=== PATIENT | female | born 1965 | race Caucasian/White ===

== ENCOUNTER 2018-10-01 20:17 | Emergency (ER) | payer MEDICAID ==
[~2018-10-01] VITALS: Ht 170.2 cm; Wt 122.9 kg
[~2018-10-01 20:17] MED LIST: ACCUNEB SO1.25 MG/1; FLEXERIL PO; VICODIN 5-5001 EACH PO
[2018-10-01] MEDS ORDERED: ZANAFLEX4 MG PO (21:12)
[2018-10-01] MEDS ORDERED: MEDROLDOSEPACK PO (21:12)
[2018-10-01] MEDS ORDERED: NAPROSYN500 MG PO (21:12)
[2018-10-01 21:52] VITALS: BP 120/72
--- NOTE | 2018-10-02 09:00 | EKG ---
[place] [address] ELECTROCARDIOGRAM REPORT Name: STEFANYJUMAYAMILE D [facility] [id number] Admission: 10/01/18 Attend Phys: Discharge: 10/01/18 Date of : 65 Report #: [id number] THIS REPORT FOR: //name// [facility] ED Test Date: 2018-10-01 Test Time: 21:25:49 Pat Name: YAMILE MCCALL Department: Room: Gender: F Flow Worker: : 1965 Requested By: Rena Alejo Order Number: [id number] MD: Apolinar Pope Measurements Intervals [place] Rate: 85 P: 40 NV: 146 QRS: 64 QRSD: 87 T: -31 QT: 378 QTc: 450 Interpretive Statements Sinus rhythm Borderline repolarization abnormality No previous ECG available for comparison Electronically Signed On 10-02-2018 9:00:05 GROUND INSTRUCTOR BASIC by Apolinar Pope [email or web address] <ELECTRONICALLY SIGNED> By: Apolinar Pope MD, [facility] 10/02/1800 212 24 Apolinar Pope MD, FACC /EPI
== END 2018-10-01 21:37 | disposition home or self-care (01) ==
LOC: M.ERS 20:17
DX: S46.812A Strain of other muscles, fascia and tendons at shoulder and upper arm level, left arm, initial encounter (principal); G89.29 Other chronic pain; J45.909 Unspecified asthma, uncomplicated; W01.0XXA Fall on same level from slipping, tripping and stumbling without subsequent striking against object, initial encounter; Y92.89 Other specified places as the place of occurrence of the external cause; Y93.89 Activity, other specified; Y99.8 Other external cause status

== ENCOUNTER 2021-08-23 19:09 | Inpatient (IN) | payer MEDICAID ==
[~2021-08-23] VITALS: Ht 170.2 cm; Wt 127.0 kg
--- NOTE | ~2021-08-23 | CON ---
[address] [address] CONSULTATION Name: YAMILE MCCALL Room: [address] IN [facility]#: [id number] Admission: 08/23/21 Attend Phys: Ori Stock Discharge: Date of : 65 Report #: [id number] THIS REPORT FOR: cc: Tanisha Hess Stephanie P. DO Arakelov, Alexandr V. MD ~ DATE OF CONSULTATION: 09/02/2021 REQUESTING PHYSICIAN: Dr. Willingham. REASON FOR CONSULTATION: Acute kidney injury. HISTORY OF PRESENT ILLNESS: The patient is a 56-year-old female with medical history significant for obesity, asthma, presents with complaints of shortness of breath. She was diagnosed with COVID on 08/19, started having symptoms on 08/12. She got progressively worse now. She is in intensive care unit, intubated, developed anuric acute kidney injury. PAST MEDICAL HISTORY: As I mentioned earlier. SOCIAL HISTORY: No tobacco or alcohol abuse. REVIEW OF SYSTEMS: Unobtainable. FAMILY HISTORY: Negative for renal problems. PHYSICAL EXAMINATION: GENERAL: She is in intensive care unit, intubated. VITAL SIGNS: Reviewed. NECK: Fatty. LUNGS: Decreased air movements. CARDIOVASCULAR: Irregular rate. ABDOMEN: Obese, soft. LABORATORY DATA: Lab report revealed serum sodium of 150, potassium 5.7, chloride 118, carbon dioxide 20, BUN 116, creatinine 5.6. Creatinine was 1.7 on 08/30. ASSESSMENT: 1. Acute anuric kidney injury due to COVID-19 infection. 2. Respiratory failure. 3. Asthma. 4. Hyperkalemia due to acute kidney injury. PLAN: We will initiate dialysis today. Prognosis is very guarded. [facility] [address] [place] [address] CONSULTATION Name: YAMILE MCCALL Room: [address]#: [id number] Admission: 08/23/21 Attend Phys: Ori Stock Discharge: Date of : 65 Report #: [id number] Thank you very much for consultation. By: [id number] Robertson MD /taz
[~2021-08-23 19:09] MED LIST changes: +MEDROLDOSEPACK PO; +NAPROSYN500 MG PO; +ZANAFLEX4 MG PO
[2021-08-23 19:14] VITALS: BP 125/56
[2021-08-23 20:08] LABS: HEMATOCRIT 32.2 % (37.0-47.0); HEMOGLOBIN 10.5 gm/dL (12.0-15.0); MCH 34.2 pg (26.0-34.0); MCHC 32.6 g/dL (28.0-37.0); MPV 9.9 fl. (7.2-11.1); NUCLEATED RBCS 0 /100WBC; PLATELET COUNT* 220 thou/uL (150-400); RBC 3.07 mil/uL (4.20-5.00); RDW-CV 15.9 % (10.5-14.5); WBC 12.8 thou/uL (4.0-11.0)
[2021-08-23 20:12] LABS: BE -3.1 mmol/L (-2 to +3); PCO2 35.5 mmHg (35.0-45.0); pH 7.391 (7.340-7.450)
[2021-08-23 20:19] LABS: CALCIUM 8.9 mg/dL (8.5-10.1); CREATININE 1.6 mg/dL (0.6-1.3); POTASSIUM 3.7 mmol/L (3.5-5.1)
[2021-08-23 20:30] LABS: ALBUMIN 2.2 g/dL (3.4-5.0); TOTAL BILIRUBIN 0.3 mg/dL (<0.1-1.0); TOTAL PROTEIN 7.9 g/dL (6.4-8.2)
[2021-08-23 21:08] LABS: ABSOLUTE LYMPHOCYTES 0.8 thou/uL (0.8-5.3); ABSOLUTE MONOCYTES 0.6 thou/uL (0.0-1.2); ABSOLUTE NEUTROPHILS 11.4 thou/uL (1.6-8.1); PLATELET ESTIMATE ADEQUATE
[2021-08-23 21:09] LABS: LARGE PLATELETS OCCASIONAL; MACROCYTES Occasional
[2021-08-24] VITALS (16 sets, daily range): BP systolic 102–159; BP diastolic 32–93
[2021-08-24 00:10] LABS: INFLUENZA A ANTIGEN Negative (Negative); INFLUENZA B ANTIGEN Negative (Negative)
[2021-08-24 00:15] LABS: BE -3.7 mmol/L (-2 to +3); PCO2 39.5 mmHg (35.0-45.0); PO2 60.5 mmHg (75.0-100.0); pH 7.354 (7.340-7.450)
--- NOTE | 2021-08-24 09:32 | EKG ---
[place] [address] ELECTROCARDIOGRAM REPORT Name: DOLORES MCCALLMaximo Rehman Room: [place] [address] ADM IN ..#: [id number] Admission: 08/23/21 Attend Phys: Kunal Willingham Discharge: Date of : 65 Date of Service: 08/23/211909 Report #: [id number] THIS REPORT FOR: //name// [facility] ED Test Date: 2021-08-23 Test Time: 19:10:48 Pat Name: YAMILE MCCALL Department: Room: [facility] Gender: F Dinkey Engineer: NATHAN : 1965 Requested By: Humera French Order Number: [id number] MD: Fran Hughes Measurements Intervals [place] Rate: 95 P: 10 AK: 121 QRS: 50 QRSD: 85 T: -45 QT: 309 QTc: 389 Interpretive Statements Sinus rhythm Abnormal R-wave progression, early transition Borderline repolarization abnormality Compared to ECG 10/01/2018 21:25:49 No significant changes Electronically Signed On 08-24-2021 9:31:40 VP PLATFORMS by Fran Hughes [email or web address] <ELECTRONICALLY SIGNED> By: Selena Hughes MD, FACC 08/24/21930 09 09 Selena Hughes MD, FAC /EPI
[2021-08-25] VITALS (106 sets, daily range): BP systolic 79–207; BP diastolic 42–137
[2021-08-25 07:19] LABS: ABSOLUTE LYMPHOCYTES 0.3 thou/uL (0.8-5.3); ABSOLUTE MONOCYTES 0.2 thou/uL (0.0-1.2); ABSOLUTE NEUTROPHILS 5.5 thou/uL (1.6-8.1); BASOPHILS 0.1 %; HEMATOCRIT 31.5 % (37.0-47.0); HEMOGLOBIN 10.2 gm/dL (12.0-15.0); MCH 34.3 pg (26.0-34.0); MCHC 32.5 g/dL (28.0-37.0); MCV 105.5 fL (80.0-100.0); MONOCYTES 2.6 %; NUCLEATED RBCS 0 /100WBC; PLATELET COUNT* 162 thou/uL (150-400); POLYS 92.3 %; RBC 2.98 mil/uL (4.20-5.00); RDW-CV 16.1 % (10.5-14.5); WBC 5.9 thou/uL (4.0-11.0)
[2021-08-25 07:30] LABS: CALCIUM 8.4 mg/dL (8.5-10.1); CREATININE 1.4 mg/dL (0.6-1.3); MAGNESIUM 1.9 mg/dL (1.8-2.4); PHOSPHORUS* 3.2 mg/dL (2.5-4.9)
[2021-08-25 08:40] LABS: BE -3.7 mmol/L (-2 to +3); PCO2 37.6 mmHg (35.0-45.0); PO2 76.1 mmHg (75.0-100.0); pH 7.368 (7.340-7.450)
[2021-08-25 14:18] LABS: ABSOLUTE LYMPHOCYTES 0.3 thou/uL (0.8-5.3); ABSOLUTE MONOCYTES 0.3 thou/uL (0.0-1.2); ABSOLUTE NEUTROPHILS 8.7 thou/uL (1.6-8.1); BASOPHILS 0.4 %; HEMATOCRIT 34.1 % (37.0-47.0); LYMPHOCYTES 2.9 %; MCH 34.5 pg (26.0-34.0); MCHC 32.1 g/dL (28.0-37.0); MCV 107.5 fL (80.0-100.0); MONOCYTES 3.5 %; MPV 10.7 fl. (7.2-11.1); NUCLEATED RBCS 0 /100WBC; PLATELET COUNT* 221 thou/uL (150-400); POLYS 93.2 %; RBC 3.18 mil/uL (4.20-5.00); WBC 9.4 thou/uL (4.0-11.0)
[2021-08-25 14:40] LABS: APTT 22.2 Seconds (25.0-31.3); INR 1.1
[2021-08-25 16:39] LABS: BE -5.8 mmol/L (-2 to +3); PCO2 37.6 mmHg (35.0-45.0); PO2 78.9 mmHg (75.0-100.0); pH 7.333 (7.340-7.450)
[2021-08-25 20:39] LABS: CALCIUM 8.4 mg/dL (8.5-10.1); CREATININE 1.8 mg/dL (0.6-1.3)
[2021-08-25 20:44] LABS: ALBUMIN 1.9 g/dL (3.4-5.0); PHOSPHORUS* 4.4 mg/dL (2.5-4.9); TOTAL BILIRUBIN 0.3 mg/dL (<0.1-1.0); TOTAL PROTEIN 7.2 g/dL (6.4-8.2)
[2021-08-26] VITALS (88 sets, daily range): BP systolic 99–149; BP diastolic 51–96
[2021-08-26 04:39] LABS: HEMATOCRIT 30.4 % (37.0-47.0); HEMOGLOBIN 9.8 gm/dL (12.0-15.0); MCH 34.1 pg (26.0-34.0); MCHC 32.1 g/dL (28.0-37.0); MCV 106.2 fL (80.0-100.0); MPV 9.7 fl. (7.2-11.1); NUCLEATED RBCS 0 /100WBC; RBC 2.86 mil/uL (4.20-5.00); RDW-CV 15.8 % (10.5-14.5); WBC 5.4 thou/uL (4.0-11.0)
[2021-08-26 05:20] LABS: ALBUMIN 1.7 g/dL (3.4-5.0); CALCIUM 8.2 mg/dL (8.5-10.1); CREATININE 1.9 mg/dL (0.6-1.3); POTASSIUM 4.2 mmol/L (3.5-5.1); TOTAL BILIRUBIN 0.2 mg/dL (<0.1-1.0); TOTAL PROTEIN 6.8 g/dL (6.4-8.2)
[2021-08-26 05:22] LABS: PLATELET COUNT* 124 thou/uL (150-400)
[2021-08-26 06:06] LABS: pH 7.182 (7.340-7.450)
[2021-08-26 06:07] LABS: PCO2 57.2 mmHg (35.0-45.0); PO2 153.6 mmHg (75.0-100.0)
[2021-08-26 08:43] LABS: INR 1.2; PROTIME 12.1 Seconds (9.20-11.50)
[2021-08-26 08:46] LABS: APTT > 139.0 Seconds (25.0-31.3)
[2021-08-26 08:48] LABS: ABSOLUTE LYMPHOCYTES 0.3 thou/uL (0.8-5.3); ABSOLUTE MONOCYTES 0.1 thou/uL (0.0-1.2); ABSOLUTE NEUTROPHILS 5.1 thou/uL (1.6-8.1)
[2021-08-26 08:49] LABS: PLATELET ESTIMATE DECREASED
[2021-08-26 08:50] LABS: HYPOCHROMASIA Occasional; MACROCYTES 1+
--- NOTE | 2021-08-26 14:12 | 2DMMODE ---
[place] [address] 2 D/M-MODE ECHOCARDIOGRAM Name: YAMILE MCCALL [facility] [place].#: [id number] Admission: 08/23/21 Attend Phys: Kunal Willingham Discharge: Date of : 65 Date of Service: 08/26/21 1411 Report #: [id number] THIS REPORT FOR: cc: Tanisha Hess,Apolinar Bo MD [facility] ~ APPROVED REPORT Study performed: 08/26/2021 10:52:40 EXAM: Comprehensive 2D, Doppler, and color-flow Echocardiogram Patient Location: In-Patient Room #: 002 Status: routine BSA: 2.30 HR: 68 bpm BP: 131/81 mmHg Rhythm: NSR Other Information Study Quality: Good Indications Dyspnea 2D Dimensions IVSd: 11.17 (7-11mm) LVOT Diam: 21.27 (18-24mm) LVDd: 40.45 mm PWd: 10.51 (7-11mm) Ascending Ao: 36.65 (22-36mm) LVDs: 25.88 (25-40mm) Aortic Root: 34.47 mm Volumes Left Atrial Volume (Systole) LA ESV Index: 15.00 mL/m2 Aortic Valve AoV Peak Aldair.: 1.50 m/s AO Peak Gr.: 9.04 mmHg LVOT Max P.42 mmHg AO Mean Gr.: 5.00 mmHg LVOT Mean P.23 mmHg LVOT Max V: 1.16 m/s AO V2 VTI: 25.21 cm LVOT Mean V: 0.67 m/s CHRISTY (VTI): 2.80 cm2 LVOT V1 VTI: 19.88 [place] [address] 2 D/M-MODE ECHOCARDIOGRAM Name: YAMILE MCCALL Room: [address] IN [facility].#: [id number] Admission: 08/23/21 Attend Phys: Kunal Willingham Discharge: Date of : 65 Date of Service: 08/26/21 1411 Report #: [id number] Mitral Valve E/A Ratio: 0.85 MV Decel. Time: 234.13 ms MV E Max Aldair.: 0.78 m/s MV PHT: 67.90 ms MVA (PHT): 3.24 cm2 TDI E/Lateral E': 6.50 E/Medial E': 7.80 Medial E' Aldair.: 0.10 m/s Lateral E' Aldair.: 0.12 m/s Pulmonary Valve PV Peak Aldair.: 0.81 m/s PV Peak Gr.: 2.60 mmHg Left Ventricle The left ventricle is normal size. There is normal LV segmental wall motion. There is normal left ventricular wall thickness. Left ventricular systolic function is normal. The left ventricular ejection fraction is within the normal range. LVEF is 55-60%. Grade I - abnormal relaxation pattern. Right Ventricle The right ventricle is normal size. The right ventricular systolic function is normal. Atria The left atrium size is normal. The right atrium size is normal. Aortic Valve The aortic valve is normal in structure. No aortic regurgitation is present. There is no aortic valvular stenosis. Mitral Valve The mitral valve is normal in structure. There is no mitral valve regurgitation noted. No evidence of mitral valve stenosis. Tricuspid Valve The tricuspid valve is normal in structure. Unable to assess PA pressure. Trace tricuspid regurgitation. Pulmonic Valve Pulmonic valve is not well visualized. There is no pulmonic [place] [address] 2 D/M-MODE ECHOCARDIOGRAM Name: YAMILE MCCALL Room: [address] IN [facility]#: [id number] Admission: 08/23/21 Attend Phys: Kunal Willingham Discharge: Date of : 65 Date of Service: 08/26/21 1411 Report #: [id number] Great Vessels The aortic root is normal in size. IVC is normal in size and collapses >50% with inspiration. Pericardium There is no pericardial effusion. <Conclusion> Left ventricular systolic function is normal. The left ventricular ejection fraction is within the normal range. <ELECTRONICALLY SIGNED> By: Apolinar Pope MD, FACC 08/26/211410 10 10 Apolinar Pope MD, FACC /INF
[2021-08-27] VITALS (80 sets, daily range): BP systolic 105–150; BP diastolic 51–81
[2021-08-27 06:28] LABS: HEMATOCRIT 36.8 % (37.0-47.0); HEMOGLOBIN 11.5 gm/dL (12.0-15.0); MCH 33.5 pg (26.0-34.0); MCHC 31.2 g/dL (28.0-37.0); MCV 107.1 fL (80.0-100.0); MPV 9.1 fl. (7.2-11.1); RBC 3.43 mil/uL (4.20-5.00); RDW-CV 16.1 % (10.5-14.5)
[2021-08-27 07:10] LABS: CREATININE 1.5 mg/dL (0.6-1.3); POTASSIUM 3.7 mmol/L (3.5-5.1)
[2021-08-27 12:25] LABS: BE -5.2 mmol/L (-2 to +3); pH 7.325 (7.340-7.450)
[2021-08-27 12:29] LABS: PO2 203.3 mmHg (75.0-100.0)
[2021-08-28] VITALS (32 sets, daily range): BP systolic 124–160; BP diastolic 66–86
[2021-08-28 06:11] LABS: HEMATOCRIT 27.3 % (37.0-47.0); MCH 34.9 pg (26.0-34.0); MCHC 32.6 g/dL (28.0-37.0); MCV 107.1 fL (80.0-100.0); MPV 10.2 fl. (7.2-11.1); RBC 2.55 mil/uL (4.20-5.00); RDW-CV 16.4 % (10.5-14.5); WBC 6.8 thou/uL (4.0-11.0)
[2021-08-28 06:24] LABS: HEMOGLOBIN 8.9 gm/dL (12.0-15.0)
[2021-08-29] VITALS (28 sets, daily range): BP systolic 93–154; BP diastolic 59–91
[2021-08-29 04:27] LABS: BE -7.5 mmol/L (-2 to +3); PCO2 44.5 mmHg (35.0-45.0)
[2021-08-29 04:29] LABS: PO2 125.8 mmHg (75.0-100.0); pH 7.257 (7.340-7.450)
[2021-08-29 05:55] LABS: ABSOLUTE LYMPHOCYTES 0.4 thou/uL (0.8-5.3); ABSOLUTE MONOCYTES 0.2 thou/uL (0.0-1.2); ABSOLUTE NEUTROPHILS 7.6 thou/uL (1.6-8.1); HEMATOCRIT 28.9 % (37.0-47.0); HEMOGLOBIN 9.3 gm/dL (12.0-15.0); LYMPHOCYTES 5.2 %; MCH 34.2 pg (26.0-34.0); MCHC 32.1 g/dL (28.0-37.0); MCV 106.6 fL (80.0-100.0); MONOCYTES 2.9 %; MPV 11.1 fl. (7.2-11.1); NUCLEATED RBCS 0 /100WBC; PLATELET COUNT* 144 thou/uL (150-400); POLYS 91.9 %; RBC 2.71 mil/uL (4.20-5.00); RDW-CV 16.4 % (10.5-14.5); WBC 8.2 thou/uL (4.0-11.0)
[2021-08-29 06:44] LABS: ALBUMIN 1.7 g/dL (3.4-5.0); CALCIUM 8.2 mg/dL (8.5-10.1); CREATININE 1.4 mg/dL (0.6-1.3); POTASSIUM 4.2 mmol/L (3.5-5.1); TOTAL BILIRUBIN 0.3 mg/dL (<0.1-1.0); TOTAL PROTEIN 6.1 g/dL (6.4-8.2)
[2021-08-29 07:55] LABS: INR 1.2; PROTIME 11.8 Seconds (9.20-11.50)
[2021-08-29 16:26] LABS: BE -5.1 mmol/L (-2 to +3); PCO2 41.9 mmHg (35.0-45.0); pH 7.315 (7.340-7.450)
[2021-08-29 16:29] LABS: PO2 130.5 mmHg (75.0-100.0)
[2021-08-30] VITALS (41 sets, daily range): BP systolic 116–197; BP diastolic 72–108
[2021-08-30 05:10] LABS: HEMATOCRIT 21.7 % (37.0-47.0); MCH 34.4 pg (26.0-34.0); MCHC 33.1 g/dL (28.0-37.0); MPV 10.9 fl. (7.2-11.1); RBC 2.08 mil/uL (4.20-5.00); RDW-CV 16.1 % (10.5-14.5); WBC 11.4 thou/uL (4.0-11.0)
[2021-08-30 05:14] LABS: HEMOGLOBIN 7.2 gm/dL (12.0-15.0)
[2021-08-30 05:25] LABS: CALCIUM 8.2 mg/dL (8.5-10.1); CREATININE 1.7 mg/dL (0.6-1.3); POTASSIUM 4.1 mmol/L (3.5-5.1)
[2021-08-30 20:55] LABS: HEMATOCRIT 28.6 % (37.0-47.0); MCH 34.3 pg (26.0-34.0); MCHC 32.2 g/dL (28.0-37.0); MCV 106.5 fL (80.0-100.0); MPV 11.1 fl. (7.2-11.1); NUCLEATED RBCS 0 /100WBC; PLATELET COUNT* 122 thou/uL (150-400); RBC 2.68 mil/uL (4.20-5.00); RDW-CV 16.3 % (10.5-14.5); WBC 12.5 thou/uL (4.0-11.0)
[2021-08-30 20:58] LABS: HEMOGLOBIN 9.2 gm/dL (12.0-15.0)
[2021-08-30 21:58] LABS: ABSOLUTE LYMPHOCYTES 0.4 thou/uL (0.8-5.3); ABSOLUTE MONOCYTES 0.1 thou/uL (0.0-1.2); PLATELET ESTIMATE DECREASED
[2021-08-30 21:59] LABS: MACROCYTES Occasional
[2021-08-31] VITALS (82 sets, daily range): BP systolic 94–176; BP diastolic 57–97
[2021-08-31 05:49] LABS: BE -3.1 mmol/L (-2 to +3); PCO2 38.7 mmHg (35.0-45.0); pH 7.367 (7.340-7.450)
[2021-08-31 07:59] LABS: ABSOLUTE LYMPHOCYTES 0.3 thou/uL (0.8-5.3); ABSOLUTE MONOCYTES 0.1 thou/uL (0.0-1.2); ABSOLUTE NEUTROPHILS 12.2 thou/uL (1.6-8.1); BASOPHILS 0.1 %; HEMATOCRIT 30.3 % (37.0-47.0); HEMOGLOBIN 9.4 gm/dL (12.0-15.0); MCH 33.3 pg (26.0-34.0); MCHC 30.9 g/dL (28.0-37.0); MCV 107.8 fL (80.0-100.0); MONOCYTES 0.7 %; MPV 12.2 fl. (7.2-11.1); NUCLEATED RBCS 0 /100WBC; PLATELET COUNT* 129 thou/uL (150-400); POLYS 97.2 %; RBC 2.81 mil/uL (4.20-5.00); RDW-CV 16.5 % (10.5-14.5); WBC 12.5 thou/uL (4.0-11.0)
[2021-08-31 08:16] LABS: ALBUMIN 1.6 g/dL (3.4-5.0); CALCIUM 8.1 mg/dL (8.5-10.1); CREATININE 1.7 mg/dL (0.6-1.3); POTASSIUM 4.3 mmol/L (3.5-5.1); TOTAL BILIRUBIN 0.4 mg/dL (<0.1-1.0); TOTAL PROTEIN 6.3 g/dL (6.4-8.2)
[2021-09-01] VITALS (63 sets, daily range): BP systolic 77–163; BP diastolic 42–89
[2021-09-01 04:39] LABS: HEMATOCRIT 28.4 % (37.0-47.0); MCH 33.8 pg (26.0-34.0); MCHC 31.9 g/dL (28.0-37.0); MCV 106.1 fL (80.0-100.0); MPV 11.9 fl. (7.2-11.1); RBC 2.67 mil/uL (4.20-5.00); RDW-CV 16.2 % (10.5-14.5); WBC 11.1 thou/uL (4.0-11.0)
[2021-09-01 04:51] LABS: CALCIUM 7.4 mg/dL (8.5-10.1); POTASSIUM 4.6 mmol/L (3.5-5.1)
[2021-09-01 04:52] LABS: CREATININE 2.9 mg/dL (0.6-1.3)
[2021-09-01 10:11] LABS: CALCIUM 6.9 mg/dL (8.5-10.1); CREATININE 2.9 mg/dL (0.6-1.3); POTASSIUM 4.5 mmol/L (3.5-5.1)
[2021-09-02] VITALS (81 sets, daily range): BP systolic 56–195; BP diastolic 31–72
[2021-09-02 04:28] LABS: HEMATOCRIT 29.9 % (37.0-47.0); HEMOGLOBIN 9.6 gm/dL (12.0-15.0); MCH 34.1 pg (26.0-34.0); MCHC 32.1 g/dL (28.0-37.0); MCV 106.2 fL (80.0-100.0); MPV 12.1 fl. (7.2-11.1); RBC 2.82 mil/uL (4.20-5.00); RDW-CV 17.2 % (10.5-14.5); WBC 14.8 thou/uL (4.0-11.0)
[2021-09-02 05:24] LABS: ALBUMIN 1.6 g/dL (3.4-5.0); CALCIUM 6.6 mg/dL (8.5-10.1); MAGNESIUM 3.1 mg/dL (1.8-2.4); TOTAL BILIRUBIN 0.9 mg/dL (<0.1-1.0); TOTAL PROTEIN 5.7 g/dL (6.4-8.2)
[2021-09-02 05:45] LABS: POTASSIUM 5.6 mmol/L (3.5-5.1)
[2021-09-02 05:46] LABS: CREATININE 5.6 mg/dL (0.6-1.3)
[2021-09-02 06:29] LABS: APTT 77.9 Seconds (25.0-31.3); INR 1.2; PROTIME 11.9 Seconds (9.20-11.50)
[2021-09-02 06:47] LABS: CK-MB MASS 1.8 ng/mL (<0.5-3.6)
[2021-09-02 07:42] LABS: CALCIUM 6.4 mg/dL (8.5-10.1); CREATININE 5.9 mg/dL (0.6-1.3); POTASSIUM 5.7 mmol/L (3.5-5.1)
--- NOTE | 2021-09-02 10:09 | CON ---
[facility] [address] [place] [address] CONSULTATION Name: STEFANYYAMILE Ori Room: [address] IN [place].Shayy.#: [id number] Admission: 08/23/21 Attend Phys: Ori Stock Discharge: Date of : 65 Report #: [id number] THIS REPORT FOR: cc: Tanisha Hess Stephanie P. DO Blick, David R. MD [facility] ~ DATE OF CONSULTATION: 09/01/2021 CARDIOLOGY CONSULTATION CHIEF COMPLAINT: Weakness, vomiting, diarrhea on admission. HISTORY OF PRESENT ILLNESS: The patient is a 56-year-old white female who I was asked to see in the ICU today after she was noted to be in atrial fibrillation. The history is obtained from the chart. There are no family members available. The patient is currently intubated and sedated. She was brought to the Emergency Room by private vehicle a week ago. She complained of chest pain because of respiratory failure. The patient had to be intubated. She tested positive for COVID-19. She has been on ventilator since that time. She was on IV pressors for hypertension. Last night, she went into atrial fibrillation with rapid ventricular response rate. Cardiology consultation requested. PAST MEDICAL HISTORY: Significant for asthma. She was recently diagnosed with COVID-19. MEDICATIONS: Consist of home medications of albuterol, hydrocodone, Naprosyn. ALLERGIES: SHE HAS PREVIOUS INTOLERANCE TO PENICILLIN. FAMILY HISTORY: Cannot be obtained. SOCIAL HISTORY: Unavailable. REVIEW OF SYSTEMS: Cannot be obtained. PHYSICAL EXAMINATION: GENERAL: Revealed a middle-aged, overweight female, lying in bed, on ventilator. VITAL SIGNS: She has blood pressure of 100/60, pulse is 90. She is afebrile. HEENT: She was anicteric. Conjunctivae pink. Mucosa moist. NECK: Veins not appear distended. CHEST: Revealed coarse breath sounds bilaterally. CARDIAC: Regular rate and rhythm. ABDOMEN: Obese. EXTREMITIES: [place] [address] CONSULTATION Name: YAMILE MCCALL Room: [address]#: [id number] Admission: 08/23/21 Attend Phys: Ori Stock Discharge: Date of : 65 Report #: [id number] SKIN: Cool and dry. NEUROLOGIC: Nonfocal. LABORATORY DATA: Her ECG on admission a week ago showed a sinus rhythm, early transition, nonspecific T-wave changes. ECG this morning shows atrial fibrillation with a rapid ventricular response rate, nonspecific ST segment changes. The patient actually had an echocardiogram performed a week ago that showed normal ejection fraction, no significant valvular abnormalities. The patient had a portable chest x-ray this morning that showed extensive emphysematous changes with bilateral interstitial infiltrates, pulmonary edema. There was subcutaneous emphysema, no pneumothorax. LABORATORY WORK: BUN 81, creatinine 2.9, glucose 273. Her troponin high sensitivity was only 14. BNP 2773. Hemoglobin 9.0, [place] [address]. IMPRESSION AND RECOMMENDATIONS: 1. Atrial fibrillation. I would give digoxin to slow the ventricular response rate. I would consider anticoagulation. 2. Obesity. 3. COVID-19 pneumonia. 4. Anemia. No history of bleeding. 5. Acute kidney injury. <ELECTRONICALLY SIGNED> By: Apolinar Pope MD, FACC 09/02/21 1009 0923 1009Apolinar Pope MD, FACC /nt
[2021-09-02 10:31] LABS: BE -15.2 mmol/L (-2 to +3); PCO2 49.6 mmHg (35.0-45.0)
[2021-09-02 10:36] LABS: PO2 158.2 mmHg (75.0-100.0); pH 7.079 (7.340-7.450)
[2021-09-02 12:24] LABS: CALCIUM 6.3 mg/dL (8.5-10.1); CREATININE 5.8 mg/dL (0.6-1.3); POTASSIUM 5.9 mmol/L (3.5-5.1)
--- NOTE | 2021-09-02 12:25 | EKG ---
[facility] [address] [place] [address] ELECTROCARDIOGRAM REPORT Name: YAMILE MCCALL Room: [address] ADM IN M.R.#: [id number] Admission: 08/23/21 Attend Phys: Kunal Willingham Discharge: Date of : 65 Date of Service: 09/01/21 0655 Report #: [id number] THIS REPORT FOR: //name// [facility] Test Date: 2021-09-01 Test Time: 06:55:50 Pat Name: YAMILE MCCALL Department: Room: [address] Gender: F Record Pressman: : 1965 Requested By: Memo Castellon Order Number: [id number] Reading MD: Cooper Baron Measurements Intervals [employer] Rate: 87 P: 34 NC: 96 QRS: 52 QRSD: 87 T: 22 QT: 328 QTc: 395 Interpretive Statements Sinus rhythm Short NC interval Abnormal R-wave progression, early transition Repol abnrm suggests ischemia, anterior leads Baseline wander in lead(s) V4 Compared to ECG 08/23/2021 19:10:48 Short NC interval now present Possible ischemia now present Electronically Signed On 09-02-2021 12:25:14 HUMAN RESOURCES MGR by Cooper Baron [email or web address] <ELECTRONICALLY SIGNED> By: Cooper Baron MD, [facility] 09/02/21 1225 0655 Cooper Baron MD, [facility] /EPI
--- NOTE | 2021-09-02 12:26 | EKG ---
[place] [address] ELECTROCARDIOGRAM REPORT Name: YAMILE MCCALL Room: [address] ADM IN M.R.#: [id number] Admission: 08/23/21 Attend Phys: Kunal Willingham Discharge: Date of : 65 Date of Service: 09/01/21 0951 Report #: [id number] THIS REPORT FOR: //name// [facility] Test Date: 2021-09-01 Test Time: 09:51:59 Pat Name: YAMILE MCCALL Department: Room: [address] Gender: F Wild Life Photographer: : 1965 Requested By: Memo Castellon Order Number: [id number] Reading MD: Cooper Baron Measurements Intervals [place] Rate: 147 P: DE: QRS: 63 QRSD: 75 T: 225 QT: 227 QTc: 355 Interpretive Statements Atrial fibrillation Nonspecific repol abnormality, diffuse leads Compared to ECG 08/23/2021 19:10:48 Sinus rhythm no longer present ST-T alterations are slightly more pronounced Electronically Signed On 09-02-2021 12:26:15 FIELD MECHANIC/SITE LEAD by Cooper Baron [email or web address] <ELECTRONICALLY SIGNED> By: Cooper Baron MD, [facility] 09/02/21 1226 0951 0951 Cooper Baron MD, [facility] /EPI
--- NOTE | 2021-09-02 12:35 | EKG ---
[place] [address] ELECTROCARDIOGRAM REPORT Name: YAMILE MCCALL Room: [address] ADM IN M.R.#: [id number] Admission: 08/23/21 Attend Phys: Kunal Willingham Discharge: Date of : 65 Date of Service: 09/02/[address] Report #: [id number] THIS REPORT FOR: //name// [facility] Test Date: 2021-09-02 Test Time: 09:20:30 Pat Name: YAMILE MCCALL Department: Room: [address] Gender: F Health Insurance Specialist: : 1965 Requested By: Apolinar Pope Order Number: [id number] MD: Cooper Baron Measurements Intervals [place] Rate: 99 P: -4 OR: 112 QRS: 78 QRSD: 78 T: -82 QT: 302 QTc: 388 Interpretive Statements Sinus rhythm Low voltage, precordial leads Diffuse nonspecific ST-T alterations Compared to ECG 09/01/2021 09:51:59 Low QRS voltage now present Atrial fibrillation no longer present Electronically Signed On 09-02-2021 12:34:45 CREW CHIEF by Cooper Baron [email or web address] <ELECTRONICALLY SIGNED> By: Cooper Baron MD, FACC 09/02/21 1234 9 9 Cooper Baron MD, FACC /EPI
--- NOTE | 2021-09-02 14:05 | 2DMMODE ---
[facility] [address] [place] [address] 2 D/M-MODE ECHOCARDIOGRAM Name: YAMILE MCCALL Room: [address] IN [place]ayy#: [id number] Admission: 08/23/21 Attend Phys: Kunal Willingham Discharge: Date of : 65 Date of Service: 09/02/21 1404 Report #: [id number] THIS REPORT FOR: cc: Tanisha Hess,Cooper Yun MD [facility] ~ APPROVED REPORT Study performed: 09/02/2021 11:38:35 EXAM: Limited 2D Echocardiogram Patient Location: In-Patient Room #: 002 Status: routine BSA: 2.33 HR: 90 bpm BP: 140/65 mmHg Rhythm: NSR Other Information Study Quality: Technically Difficult Technically limited study due to body habitus, inability to position patient, patient on ventilator. Indications Elevated Troponin Left Ventricle The left ventricle is normal size. There is normal LV segmental wall motion. There is normal left ventricular wall thickness. The left ventricular systolic function is normal. The left ventricular ejection fraction is within the normal range. LVEF is 60-65%. Right Ventricle The right ventricle is normal size. The right ventricular systolic function is normal. Atria The left atrium size is normal. Aortic Valve The aortic valve is normal in structure. Mitral Valve The mitral [place] [id number] 2 D/M-MODE ECHOCARDIOGRAM Name: YAMILE MCCALL Room: [address] IN .Shayy.#: [id number] Admission: 08/23/21 Attend Phys: Kunal Willingham Discharge: Date of : 65 Date of Service: 09/02/21 1404 Report #: [id number] Tricuspid Valve The tricuspid valve is normal in structure. Unable to assess PA pressure. Trace tricuspid regurgitation. Great Vessels The aortic root is normal in size. IVC is normal in size and collapses >50% with inspiration. Pericardium There is no pericardial effusion. <Conclusion> The left ventricle is normal size. There is normal left ventricular wall thickness. The left ventricular systolic function is normal. The left ventricular ejection fraction is within the normal range. LVEF is 60-65%. The right ventricle is normal size. The left atrium size is normal. The aortic valve is normal in structure. The mitral valve is normal in structure. The tricuspid valve is normal in structure. IVC is normal in size and collapses >50% with inspiration. There is no pericardial effusion. There is normal LV segmental wall motion. <ELECTRONICALLY SIGNED> By: Cooper Baron MD, [facility] 09/02/21 1404 1404 140 Cooper Baron MD, FAC /INF
[2021-09-02 16:33] LABS: CALCIUM 6.6 mg/dL (8.5-10.1); CREATININE 5.5 mg/dL (0.6-1.3); POTASSIUM 5.5 mmol/L (3.5-5.1)
[2021-09-02 16:55] LABS: URINE BILIRUBIN NEGATIVE (Negative); URINE BLOOD 2+ (Negative); URINE CLARITY CLEAR; URINE COLOR YELLOW; URINE GLUCOSE-RANDOM 1+ (Negative); URINE KETONES TRACE (Negative); URINE LEUKOCYTES-REFLEX NEGATIVE (Negative); URINE NITRITE-REFLEX NEGATIVE (Negative); URINE PROTEIN 2+ (Negative); URINE SPECIFIC GRAVITY >= 1.030 (1.005-1.030); URINE UROBILINOGEN 0.2 E.U./dl (0.2-1.0)
[2021-09-02 17:08] LABS: BACTERIA-REFLEX 1-9 Few /HPF (None Seen); CASTS None Seen /LPF (None Seen); CRYSTALS None Seen /LPF (None Seen); SQUAMOUS 0-3 Few /LPF (0-3); URINE RBC 3-10 Few /HPF (0-2); URINE WBC-REFLEX 0-5 Rare /HPF (0-5)
[2021-09-02 18:22] LABS: BE -13.2 mmol/L (-2 to +3); PCO2 VENOUS 53.2 mmHg (41.0-51.0); PO2 VENOUS 136.5 mmHg (35.0-45.0)
[2021-09-02 21:04] LABS: CALCIUM 6.3 mg/dL (8.5-10.1); CREATININE 4.9 mg/dL (0.6-1.3); POTASSIUM 5.3 mmol/L (3.5-5.1)
[2021-09-03 05:30] LABS: ABSOLUTE LYMPHOCYTES 0.6 thou/uL (0.8-5.3); ABSOLUTE MONOCYTES 0.1 thou/uL (0.0-1.2); ABSOLUTE NEUTROPHILS 19.1 thou/uL (1.6-8.1); BASOPHILS 0.1 %; EOSINOPHILS 0.1 %; HEMATOCRIT 22.5 % (37.0-47.0); MCH 33.9 pg (26.0-34.0); MCHC 31.4 g/dL (28.0-37.0); MONOCYTES 0.6 %; MPV 10.6 fl. (7.2-11.1); NUCLEATED RBCS 0 /100WBC; POLYS 96.2 %; RBC 2.08 mil/uL (4.20-5.00); RDW-CV 17.4 % (10.5-14.5); WBC 19.8 thou/uL (4.0-11.0)
[2021-09-03 06:16] LABS: ALBUMIN 1.6 g/dL (3.4-5.0); CALCIUM 6.4 mg/dL (8.5-10.1); MAGNESIUM 3.4 mg/dL (1.8-2.4); TOTAL BILIRUBIN 1.1 mg/dL (<0.1-1.0); TOTAL PROTEIN 4.8 g/dL (6.4-8.2)
[2021-09-03 06:26] LABS: POTASSIUM 7.3 mmol/L (3.5-5.1)
[2021-09-03 06:28] LABS: HEMOGLOBIN 7.1 gm/dL (12.0-15.0); PLATELET COUNT* 41 thou/uL (150-400)
[2021-09-03 06:41] LABS: PHOSPHORUS* 12.1 mg/dL (2.5-4.9)
[2021-09-04 15:07] LABS: HEPATITIS B SURFACE AG Negative (Negative)
== END 2021-09-03 06:54 | DRG 870 ==
LOC: M.ERS 19:09 → M.ICU 20:36 → M.TBA-ER 20:36 → M.ICU 08-24 15:03
PROVIDERS: Emergency Medicine; Internal Medicine; Internal Medicine Critical Care Medicine; Pediatrics; ADMIT Internal Medicine; ATTEND Internal Medicine
PROC: 5A09457 Assistance with Respiratory Ventilation, 24-96 Consecutive Hours, Continuous Positive Airway Pressure (ICD-10-PCS; principal; 2021-08-24)
PROC: XW033E5 Introduction of Remdesivir Anti-infective into Peripheral Vein, Percutaneous Approach, New Technology Group 5 (ICD-10-PCS; principal; 2021-08-24)
PROC: 05HY33Z Insertion of Infusion Device into Upper Vein, Percutaneous Approach (ICD-10-PCS; 2021-08-25)
PROC: 0B9F8ZX Drainage of Right Lower Lung Lobe, Via Natural or Artificial Opening Endoscopic, Diagnostic (ICD-10-PCS; 2021-08-25)
PROC: 5A1955Z Respiratory Ventilation, Greater than 96 Consecutive Hours (ICD-10-PCS; 2021-08-25)
PROC: 0BH17EZ Insertion of Endotracheal Airway into Trachea, Via Natural or Artificial Opening (ICD-10-PCS; 2021-08-25)
PROC: 06HY33Z Insertion of Infusion Device into Lower Vein, Percutaneous Approach (ICD-10-PCS; 2021-09-02)
PROC: 5A12012 Performance of Cardiac Output, Single, Manual (ICD-10-PCS; 2021-09-02)
DX: A41.81 Sepsis due to Enterococcus (principal); U07.1 COVID-19; J12.82 Pneumonia due to coronavirus disease 2019; J80 Acute respiratory distress syndrome; I21.4 Non-ST elevation (NSTEMI) myocardial infarction; N17.9 Acute kidney failure, unspecified; E46 Unspecified protein-calorie malnutrition; I50.30 Unspecified diastolic (congestive) heart failure; Z68.41 Body mass index [BMI] 40.0-44.9, adult; J45.909 Unspecified asthma, uncomplicated; I48.91 Unspecified atrial fibrillation; D64.9 Anemia, unspecified; E87.5 Hyperkalemia; E66.01 Morbid (severe) obesity due to excess calories; R73.9 Hyperglycemia, unspecified; D69.6 Thrombocytopenia, unspecified; R74.01 Elevation of levels of liver transaminase levels; I95.9 Hypotension, unspecified; J98.2 Interstitial emphysema; Z88.6 Allergy status to analgesic agent; Z88.0 Allergy status to penicillin